=== PATIENT | male | born 1985 | race Two or more races ===

== ENCOUNTER 2023-03-12 08:31 | Emergency (ER) | payer OTHER ==
[~2023-03-12] VITALS: Ht 180.3 cm; Wt 81.3 kg
[2023-03-12 09:30] VITALS: PULSE 73; RESP 19; TEMP 99.3; O2SAT 95
[2023-03-12 09:46] LABS: Albumin 3.7 g/dL (3.4-5.0); Basophils # (auto) 0 10 ^3/uL (0-0.2); Calcium 8.9 mg/dL (8.5-10.1); Eosinophils # (auto) 0.3 10 ^3/uL (0-0.8); Eosinophils % (auto) 4.6 % (0.0-7.0); Hematocrit 42.4 % (41.0-53.0); Hemoglobin 14.7 g/dL (13.5-17.5); Lymphocytes # (auto) 0.6 10 ^3/uL (0.4-5.4); Lymphocytes % (auto) 9.5 % (10.0-50.0); Magnesium 2.4 mg/dL (1.6-2.6); Mean Corpuscular Hemoglobin 29.9 pg (28.0-32.0); Mean Corpuscular Hgb Conc. 34.6 g/dL (32.0-36.0); Mean Corpuscular Volume 86.4 fL (80.0-100.0); Monocytes # (auto) 0.5 10 ^3/uL (0-1.3); Neutrophils # (auto) 5.2 10 ^3/uL (1.6-8.6); Neutrophils % (auto) 77.9 % (37.0-80.0); Nucleated Red Blood Cells % 0.2 %; Potassium 4.4 mmol/L (3.5-5.1); Red Blood Cells 4.91 10^6/uL (4.5-5.90); Red Cell Distribution Width 13.2 % (11.8-14.3); White Blood Cell 6.7 10^3/uL (4.4-10.8)
[2023-03-12 09:50] LABS: BUN/Creatinine Ratio 15.1 (10.0-20.0); Bilirubin, Total 0.6 mg/dL (0.2-1.0); Total Protein 7.6 g/dL (6.4-8.2)
[2023-03-12 09:58] LABS: INR 1.03 (0.9-1.15); Partial Thromboplastin Time 29.3 SEC (24.5-34.5); Prothrombin Time 10.8 sec (9.3-11.8)
[2023-03-12] MEDS ORDERED: KETOROLAC TROMETH 30 MG/ML 1ML VIAL IV ONE (10:00)
[2023-03-12] MEDS ORDERED: IOHEXOL 350 MG/ML 100ML IJ ONE (12:42)
[2023-03-12 15:30] VITALS: BP 120/68; PULSE 72; RESP 15; O2SAT 95
== END 2023-03-12 15:50 ==
LOC: ER 08:31 → EDBD 08:31 → ER 15:50
DX: R07.89 Other chest pain (principal)
CPT/HCPCS: 36415; 71045; 71275; 80053; 83735; 83880; 84484; 85025; 85379; 85610; 85730; 93005; 96374; 99285; J1885; Q9967